=== PATIENT | female | born 1950 | race Caucasian/White ===

== ENCOUNTER → 2018-08-18 13:10 | Outpatient (BNVA) | payer MEDICARE, SELFPAY | PROVIDERS: PCP Family Medicine; Referring Provider Family Medicine; Visit Provider Surgery | DX: C44.319 Basal cell carcinoma of skin of other parts of face (principal) | CPT/HCPCS: 99202; 99213 ==

== ENCOUNTER 2018-08-28 06:54 | Day surgery (SDC) | payer MEDICARE, SELFPAY ==
[2018-08-28 07:04] VITALS: BP 138/68; PULSE 70; RESP 14; TEMP 37.3; O2SAT 94
[2018-08-28] MEDS: Lidocaine 1% Pres-Free 5 ML VIAL (09:00)
--- NOTE | 2018-08-28 09:07 | SKI_PTH ---
PATIENT: Inga Hernandez LOC: [facility] U#:[id number] AGE/SX: 67/F ROOM: RE08/28/[address]: Clay Roberts DO : 1950 BED: DIS: 08/28/2018 SPEC #: [id number] RECD: 08/28/18 12:54 STATUS: CARMELO REQ #: [id number] CINDY: 08/28/18 09:[address]: Clay Roberts DEPT: Surgical Specimen RECD BY: Patricia Ng ENTERED: 08/28/18 12:56 SP TYPE: JAIDEN WILSON DR: Tato Epps MD Tissues: 1 - SKIN BIOPSY(SHAVE/PUNCH) Procedures: SKIN LEVEL 4 Comments: [id number]
--- NOTE | 2018-08-28 09:38 | W.PM.DSUDISC ---
Discharge Plan Disposition Patient Disposition: HOME Condition: Good Discharge Details Reason For Visit: Basal carcinoma cell Attending Provider: Clay Roberts Primary Care Provider: Tato Epps Home Meds and New Rx's Prescriptions: No Action ascorbic acid (vitamin C) [C-1000] 1,000 MG tablet 1 tab PO DAILY RF: 0 multivitamin with minerals [Hair,Skin and Nails] 1 EACH tablet 1 tab PO DAILY RF: 0 vitamin B complex 1 EACH capsule 1 ea PO DAILY RF: 0 cholecalciferol (vitamin D3) 1,000 UNIT tablet 3,000 unit PO DAILY RF: 0 Discharge Instructions Instructions: Care For Your Absorbable Stitches (DC) Referrals: Clay Roberts DO [ [facility] STAFF PHYSICIAN] - 09/08/18 9:15 am (Follow up after excision of BCC left samaritan) Activity:: Activity as Tolerated Remove Dressings/Wound Care:: Do Not Remove Shower/Bathe:: 24 hours Diet:: Normal Diet Discharge Orders Discharge Orders: Discharge Order (Routine); Ordered 08/28/18 Ordered By: Clay Roberts DS: Diagnosis Discharge Diagnosis (1) Basal cell carcinoma (BCC): Status: Acute Asessment and Plan: Biopsy proven BCC excise under local
--- NOTE | 2018-08-28 09:43 | PDOC.DSDIS_ITS ---
Discharge Plan Disposition Patient Disposition: HOME Condition: Good Discharge Details Reason For Visit: Basal carcinoma cell Attending Provider: Clay Roberts Primary Care Provider: Tato Epps Home Meds and New Rx's Prescriptions: No Action ascorbic acid (vitamin C) [C-1000] 1,000 MG tablet 1 tab PO DAILY RF: 0 multivitamin with minerals [Hair,Skin and Nails] 1 EACH tablet 1 tab PO DAILY RF: 0 vitamin B complex 1 EACH capsule 1 ea PO DAILY RF: 0 cholecalciferol (vitamin D3) 1,000 UNIT tablet 3,000 unit PO DAILY RF: 0 Discharge Instructions Instructions: Care For Your Absorbable Stitches (DC) Referrals: Clay Roberts DO [ [facility] STAFF PHYSICIAN] - 09/08/18 9:15 am (Follow up after excision of BCC left muslim) Activity:: Activity as Tolerated Remove Dressings/Wound Care:: Do Not Remove Shower/Bathe:: 24 hours Diet:: Normal Diet Discharge Orders Discharge Orders: Discharge Order (Routine); Ordered 08/28/18 Ordered By: Clay Roberts DS: Diagnosis Discharge Diagnosis (1) Basal cell carcinoma (BCC): Status: Acute Asessment and Plan: Biopsy proven BCC excise under local
[2018-08-28 09:45] VITALS: BP 140/77; PULSE 65; RESP 16; TEMP 37; O2SAT 97
--- NOTE | 2018-08-28 17:16 | W.PM.OP ---
Date of service: 08/28/18 Time of Service: 08:30 Operative Note DATE OF PROCEDURE: 08/28/18 PRE-OP DIAGNOSIS: Basal cell carcinoma of the left mormon POST-OP DIAGNOSIS: same PROCEDURE: Excision of basal cell carcinoma of the left mormon SURGEON: Clay Roberts PHOTOCOPY OPERATOR: Jayla Brar ANESTHESIA: local (1% lidocaine and 0.25% Marcaine with epinephrine ) ESTIMATED BLOOD LOSS: 3 PATHOLOGY: other (Basal cell carcinoma left mormon single tail medial, double tail superior) COMPLICATIONS: None Patient was transported to: same day Patient's condition: stable Indications: 67-year-old woman with biopsy-proven basal cell carcinoma of the left mormon presents for definitive excision of the lesion. Findings: Basal cell carcinoma lesion excised in a semi-lunar excision measuring 2.1 cm x 0.6 cm in greatest dimensions. Procedure Description: The patient was brought to the operating room and positioned supine with her head and upper torso elevated to 30 degrees. An appropriate timeout was made which reviewed the patient's identification, allergies, medications, procedure, and site. The left mormon was then prepped with Betadine paint, and block draped in standard sterile fashion. Local was then infiltrated in a semi-lunar ellipse around the lesion which was marked after the site was prepped. I began by excising the semi-lunar ellipse, which measured 2.1 cm x 0.6 cm in greatest dimension, that I had put made around the patient's lesion on her left mormon which was very close to the left eyebrow ridge. The incision was carried down to the subcutaneous tissue and the base was sharply divided. Hemostasis was obtained with cautery. The lesion was passed off for pathology with the following markings medial was marked with a single single tail stitch, and superior was marked with a double tail stitch. The wound was then closed in layers with 4-0 Vicryl suture using an inverted interrupted stitches to approximate the subcutaneous tissue. The skin was closed using a running subcuticular suture of 5-0 Vicryl. Skin glue was then applied as a dressing over the closed wound. There are no complications during the case the patient tolerated very well. She was brought to the day surgery recovery area in good condition
--- NOTE | 2018-08-28 17:27 | ROE_ITS ---
Date of service: 08/28/18 Time of Service: 08:30 Operative Note DATE OF PROCEDURE: 08/28/18 PRE-OP DIAGNOSIS: Basal cell carcinoma of the left congregational POST-OP DIAGNOSIS: same PROCEDURE: Excision of basal cell carcinoma of the left congregational SURGEON: Clay Roberts CONSTRUCTION AREA MANAGER: Jayla Brar ANESTHESIA: local (1% lidocaine and 0.25% Marcaine with epinephrine ) ESTIMATED BLOOD LOSS: 3 PATHOLOGY: other (Basal cell carcinoma left congregational single tail medial, double tail superior) COMPLICATIONS: None Patient was transported to: same day Patient's condition: stable Indications: 67-year-old woman with biopsy-proven basal cell carcinoma of the left congregational presents for definitive excision of the lesion. Findings: Basal cell carcinoma lesion excised in a semi-lunar excision measuring 2.1 cm x 0.6 cm in greatest dimensions. Procedure Description: The patient was brought to the operating room and positioned supine with her head and upper torso elevated to 30 degrees. An appropriate timeout was made which reviewed the patient's identification, allergies, medications, procedure, and site. The left congregational was then prepped with Betadine paint, and block draped in standard sterile fashion. Local was then infiltrated in a semi-lunar ellipse around the lesion which was marked after the site was prepped. I began by excising the semi-lunar ellipse, which measured 2.1 cm x 0.6 cm in greatest dimension, that I had put made around the patient's lesion on her left congregational which was very close to the left eyebrow ridge. The incision was carried down to the subcutaneous tissue and the base was sharply divided. Hemostasis was obtained with cautery. The lesion was passed off for pathology with the following markings medial was marked with a single single tail stitch, and superior was marked with a double tail stitch. The wound was then closed in layers with 4-0 Vicryl suture using an inverted interrupted stitches to approximate the subcutaneous tissue. The skin was closed using a running subcuticular suture of 5-0 Vicryl. Skin glue was then applied as a dressing over the closed wound. There are no complications during the case the patient tolerated very well. She was brought to the day surgery recovery area in good condition
== END 2018-08-28 09:58 | disposition home or self-care (01) ==
PROVIDERS: PCP Family Medicine; Visit Provider Surgery
PROC: (CPT 11642; principal; 2018-08-28 08:45)
DX: C44.319 Basal cell carcinoma of skin of other parts of face (principal)
CPT/HCPCS: 11642; 12051; 88305

== ENCOUNTER → 2018-09-08 08:57 | Outpatient (BNVA) | payer MEDICARE, SELFPAY | PROVIDERS: PCP Family Medicine; Referring Provider Family Medicine; Visit Provider Surgery | DX: Z48.817 Encounter for surgical aftercare following surgery on the skin and subcutaneous tissue (principal); C44.310 Basal cell carcinoma of skin of unspecified parts of face ==

== ENCOUNTER → 2018-10-06 09:04 | Outpatient (BNVA) | payer MEDICARE, SELFPAY | PROVIDERS: PCP Family Medicine; Referring Provider Family Medicine; Visit Provider Surgery | DX: R69 Illness, unspecified (principal) ==

== ENCOUNTER → 2018-10-08 09:10 | Outpatient (BNVA) | payer MEDICARE, SELFPAY | PROVIDERS: PCP Family Medicine; Referring Provider Family Medicine; Visit Provider Surgery | DX: C44.319 Basal cell carcinoma of skin of other parts of face (principal) | CPT/HCPCS: 99212; 99213 ==

== ENCOUNTER 2018-10-23 12:52 | Day surgery (SDC) | payer MEDICARE, SELFPAY ==
[2018-10-23 13:10] VITALS: BP 141/83; PULSE 78; RESP 16; TEMP 37.5; O2SAT 95
--- NOTE | 2018-10-23 15:05 | SKI_PTH ---
PATIENT: Inga Hernandez LOC: [facility] U#:[id number] AGE/SX: 67/F ROOM: RE10/23/[address]: Clay Roberts DO : 1950 BED: DIS: 10/23/2018 SPEC #: [id number] RECD: 10/23/18 18:25 STATUS: CARMELO REQ #: [id number] CINDY: 10/23/18 15:[address]: Clay Roberts DEPT: Surgical Specimen RECD BY: Patricia Ng ENTERED: 10/23/18 18:27 SP TYPE: SKI OTHR DR: Tato Epps MD Tissues: 1 - SKIN BIOPSY(SHAVE/PUNCH) 2 - FROZEN SECTION EXAM 3 - FROZEN SECTION- EXTRA SPECIMEN Procedures: FROZEN SECTION EXTRA SKIN LEVEL 4 FROZEN SECTION EXAM Comments: [id number]
--- NOTE | 2018-10-23 17:27 | ROE_ITS ---
Date of service: 10/23/18 Time of Service: 15:30 Operative Note DATE OF PROCEDURE: 10/23/18 PRE-OP DIAGNOSIS: Basal cell carcinoma of the left eyebrow POST-OP DIAGNOSIS: same PROCEDURE: Excision positive margins basal cell carcinoma of the left eyebrow SURGEON: Clay Roberts ANESTHESIA: local (1% lidocaine with epinephrine) ESTIMATED BLOOD LOSS: 3 PATHOLOGY: other (Excised left eyebrow scar: One single stitch medial, double stitch inferior) COMPLICATIONS: None Patient was transported to: same day Patient's condition: stable Indications: 67-year-old woman with biopsy-proven basal cell carcinoma of the left eyebrow, which was subsequently excised under local. Pathology review of the specimen showed positive margins of both the inferior and superior edges of the excision. It was recommended that the positive margins be excised. The procedure was reviewed with her, and the risks discussed. All her questions were answered to her satisfaction. Consent was obtained to proceed with reexcision of positive margins. Findings: A left curvilinear elliptical incision was made measuring 3.5 cm x 1 cm in greatest diameter over the prior excision scar of the left lateral eyebrow ridge. Pathology reviewed by frozen section demonstrated no residual carcinoma at the new margins. Procedure Description: Patient was brought to the operating room positioned supine. She was positioned with her torso flexed to 30 degrees, and all bony prominences were padded. An appropriate timeout was taken reviewing the patient's identification, allergies, medications, procedure, and site. The left lutheran was then prepped with Betadine and block draped in standard sterile fashion. I created a anesthetic field by infiltrating local in and around the prior scar. I then proceeded to excise the prior scar by making a curvilinear incision around this measuring 3.5 cm x 1 cm in the greater and lesser axis. The base was then sharply divided. I marked the specimen with silk sutures: Single tail for the medial margin, and double tail for the inferior margin. The wound edges were approximated using simple stitches of 2-0 Prolene suture. Specimen was reviewed by pathology by frozen section. Pathology confirmed no residual carcinoma at the new margins. I then removed the 2-0 Prolene stitches. The wound was then closed in layers. The subcutaneous tissue was approximated using simple inverted stitches of 3-0 Vicryl, and skin was approximated using 4-0 Vicryl suture in a subcuticular fashion. There were no complications during the case. Patient tolerated procedure well, and was brought to the day surgery recovery area in good condition. All counts were reported as correct x2
--- NOTE | 2018-10-23 17:50 | W.PM.DSUDISC ---
Discharge Plan Disposition Patient Disposition: HOME Condition: Good Discharge Details Reason For Visit: Basal cell carcinoma Attending Provider: Clay Roberts Primary Care Provider: Tato Epps Home Meds and New Rx's Prescriptions: Continued ascorbic acid (vitamin C) [C-1000] 1,000 MG tablet 1 tab PO DAILY RF: 0 multivitamin with minerals [Hair,Skin and Nails] 1 EACH tablet 1 tab PO DAILY RF: 0 vitamin B complex 1 EACH capsule 1 ea PO DAILY RF: 0 cholecalciferol (vitamin D3) 1,000 UNIT tablet 3,000 unit PO DAILY RF: 0 Discharge Instructions Instructions: Care For Your Stitches (DC), Skin Cancer Prevention (DC) Stand Alone Forms: Gera Mena ([facility]U) Referrals: Jayla Brar PA [[facility]ANS ORTHODONTIC TECHNICIAN] - 10/27/18 10:45 am Activity:: Activity as Tolerated Remove Dressings/Wound Care:: Do Not Remove Diet:: As Tolerated Discharge Orders Discharge Orders: Discharge Order (Routine); Ordered 10/23/18 Ordered By: Clay Roberts Discharge Data Discharge Date/Time-TO BE ENTERED AT DEPARTURE: 10/23/18 16:29 DS: Diagnosis Discharge Diagnosis (1) Basal cell carcinoma (BCC) of brow: Status: Acute Asessment and Plan: Positive margins excised with confirmation by frozen section Operative Note DATE OF PROCEDURE: 10/23/18 PRE-OP DIAGNOSIS: Basal cell carcinoma of the left eyebrow POST-OP DIAGNOSIS: same PROCEDURE: Excision positive margins basal cell carcinoma of the left eyebrow SURGEON: Clay Roberts ANESTHESIA: local (1% lidocaine with epinephrine) ESTIMATED BLOOD LOSS: 3 PATHOLOGY: other (Excised left eyebrow scar: One single stitch medial, double stitch inferior) COMPLICATIONS: None Patient was transported to: same day Patient's condition: stable Indications: 67-year-old woman with biopsy-proven basal cell carcinoma of the left eyebrow, which was subsequently excised under local. Pathology review of the specimen showed positive margins of both the inferior and superior edges of the excision. It was recommended that the positive margins be excised. The procedure was reviewed with her, and the risks discussed. All her questions were answered to her satisfaction. Consent was obtained to proceed with reexcision of positive margins. Findings: A left curvilinear elliptical incision was made measuring 3.5 cm x 1 cm in greatest diameter over the prior excision scar of the left lateral eyebrow ridge. Pathology reviewed by frozen section demonstrated no residual carcinoma at the new margins. Procedure Description: Patient was brought to the operating room positioned supine. She was positioned with her torso flexed to 30 degrees, and all bony prominences were padded. An appropriate timeout was taken reviewing the patient's identification, allergies, medications, procedure, and site. The left anglican was then prepped with Betadine and block draped in standard sterile fashion. I created a anesthetic field by infiltrating local in and around the prior scar. I then proceeded to excise the prior scar by making a curvilinear incision around this measuring 3.5 cm x 1 cm in the greater and lesser axis. The base was then sharply divided. I marked the specimen with silk sutures: Single tail for the medial margin, and double tail for the inferior margin. The wound edges were approximated using simple stitches of 2-0 Prolene suture. Specimen was reviewed by pathology by frozen section. Pathology confirmed no residual carcinoma at the new margins. I then removed the 2-0 Prolene stitches. The wound was then closed in layers. The subcutaneous tissue was approximated using simple inverted stitches of 3-0 Vicryl, and skin was approximated using 4-0 Vicryl suture in a subcuticular fashion. There were no complications during the case. Patient tolerated procedure well, and was brought to the day surgery recovery area in good condition. All counts were reported as correct x2
--- NOTE | 2018-10-23 17:55 | PDOC.DSDIS_ITS ---
Discharge Plan Disposition Patient Disposition: HOME Condition: Good Discharge Details Reason For Visit: Basal cell carcinoma Attending Provider: Clay Roberts Primary Care Provider: Tato Epps Home Meds and New Rx's Prescriptions: Continued ascorbic acid (vitamin C) [C-1000] 1,000 MG tablet 1 tab PO DAILY RF: 0 multivitamin with minerals [Hair,Skin and Nails] 1 EACH tablet 1 tab PO DAILY RF: 0 vitamin B complex 1 EACH capsule 1 ea PO DAILY RF: 0 cholecalciferol (vitamin D3) 1,000 UNIT tablet 3,000 unit PO DAILY RF: 0 Discharge Instructions Instructions: Care For Your Stitches (DC), Skin Cancer Prevention (DC) Stand Alone Forms: Gera Mena ([facility]U) Referrals: Jayla Brar PA [PHYSICIANS LEGAL WORD PROCESSOR] - 10/27/18 10:45 am Activity:: Activity as Tolerated Remove Dressings/Wound Care:: Do Not Remove Diet:: As Tolerated Discharge Orders Discharge Orders: Discharge Order (Routine); Ordered 10/23/18 Ordered By: Clay Roberts Discharge Data Discharge Date/Time-TO BE ENTERED AT DEPARTURE: 10/23/18 16:29 DS: Diagnosis Discharge Diagnosis (1) Basal cell carcinoma (BCC) of brow: Status: Acute Asessment and Plan: Positive margins excised with confirmation by frozen section Operative Note DATE OF PROCEDURE: 10/23/18 PRE-OP DIAGNOSIS: Basal cell carcinoma of the left eyebrow POST-OP DIAGNOSIS: same PROCEDURE: Excision positive margins basal cell carcinoma of the left eyebrow SURGEON: Clay Roberts ANESTHESIA: local (1% lidocaine with epinephrine) ESTIMATED BLOOD LOSS: 3 PATHOLOGY: other (Excised left eyebrow scar: One single stitch medial, double s titch inferior) COMPLICATIONS: None Patient was transported to: same day Patient's condition: stable Indications: 67-year-old woman with biopsy-proven basal cell carcinoma of the left eyebrow, which was subsequently excised under local. Pathology review of the specimen showed positive margins of both the inferior and superior edges of the excision. It was recommended that the positive margins be excised. The procedure was reviewed with her, and the risks discussed. All her questions were answered to her satisfaction. Consent was obtained to proceed with reexcision of positive margins. Findings: A left curvilinear elliptical incision was made measuring 3.5 cm x 1 cm in greatest diameter over the prior excision scar of the left lateral eyebrow ridge. Pathology reviewed by frozen section demonstrated no residual carcinoma at the new margins. Procedure Description: Patient was brought to the operating room positioned supine. She was positioned with her torso flexed to 30 degrees, and all bony prominences were padded. An appropriate timeout was taken reviewing the patient's identification, allergies, medications, procedure, and site. The left jehovah's witness was then prepped with Betadine and block draped in standard sterile fashion. I created a anesthetic field by infiltrating local in and around the prior scar. I then proceeded to excise the prior scar by making a curvilinear incision around this measuring 3.5 cm x 1 cm in the greater and lesser axis. The base was then sharply divided. I marked the specimen with silk sutures: Single tail for the medial margin, and double tail for the inferior margin. The wound edges were approximated using simple stitches of 2-0 Prolene suture. Specimen was reviewed by pathology by frozen section. Pathology confirmed no residual carcinoma at the new margins. I then removed the 2-0 Prolene stitches. The wound was then closed in layers. The subcutaneous tissue was approximated using simple inverted stitches of 3-0 Vicryl, and skin was approximated using 4-0 Vicryl suture in a subcuticular fashion. There were no complications during the case. Patient tolerated procedure well, and was brought to the day surgery recovery area in good condition. All counts were reported as correct x2
== END 2018-10-23 16:29 | disposition home or self-care (01) ==
PROVIDERS: PCP Family Medicine; Visit Provider Surgery
PROC: 0HB1XZZ Excision of Face Skin, External Approach (ICD-10-PCS; CPT 11644; principal; 2018-10-23 14:00)
DX: C44.319 Basal cell carcinoma of skin of other parts of face (principal)
CPT/HCPCS: 11644; 12052; 88305; 88331; 88332

== ENCOUNTER 2019-06-05 08:33 | Emergency (ER) | payer MEDICARE, SELFPAY ==
[2019-06-05 08:40] VITALS: BP 148/75; PULSE 68; RESP 16; TEMP 36.6; O2SAT 98
--- NOTE | 2019-06-05 08:43 | W.ED.GENAD ---
Discharge Plan Disposition Patient Disposition: HOME Condition: Stable Discharge Details Chief Complaint: RashLesion Clinical Impression: Abscess of axilla, left Primary Care Provider: Tato Epps ED Provider: Piter Bennett Home Meds and New Rx's Prescriptions: New sulfamethoxazole-trimethoprim [Bactrim DS] 800-160 mg tablet 1 tab PO BID Qty: 14 RF: 0 No Action ascorbic acid (vitamin C) [C-1000] 1,000 MG tablet 1 tab PO DAILY RF: 0 multivitamin with minerals [Hair,Skin and Nails] 1 EACH tablet 1 tab PO DAILY RF: 0 vitamin B complex 1 EACH capsule 1 ea PO DAILY RF: 0 cholecalciferol (vitamin D3) 1,000 UNIT tablet 3,000 unit PO DAILY RF: 0 Discharge Instructions Additional Instructions: I have referred you to general surgery to have an evaluation to see if there is a procedure that can be done to help prevent this from happening in the future If you have fevers, severe worsening of pain or feel more ill return to the emergency department Medical Decision Making PAtient states for years she has had an intermittent lesion in left arm pit that will intermittently drain. Has had recurrence of it the past week with some drainage, no fevers or chills or other systemic symptoms. She has a 1cm open area in left arm pit that appears to have drained and is likely an abscess, no significant surrounding erythema and no severe pain or crepitus. Will start abx and given she has had this numerous times will refer to general surgery for an evaluation Differential Diagnosis nodule, abscess, cellulitis HPI General Mode of arrival: ambulatory. Date/Time Provider Initiated Documentation: 06/05/19 08:34. Limitations to Documentation: no limitations. Information obtained by: patient. History of Present Illness 68 year old F presents to the emergency department with the chief complaint of left arm lesion, described as mild, Quality is described as aching, Patient started experiencing this year(s) (2) and it has been intermittent. No relieving factors improve symptom(s), No exacerbating factors reported . Patient did receive the following treatments prior to arrival, none Related Data Home Medications Medication Instructions Recorded Confirmed ascorbic acid (vitamin C) [C-1000] 1 tab PO DAILY 02/19/13 10/23/18 multivitamin with minerals 1 tab PO DAILY 02/19/13 10/23/18 [Hair,Skin and Nails] cholecalciferol (vitamin D3) 3,000 unit PO DAILY 12/11/16 10/23/18 vitamin B complex 1 ea PO DAILY 12/11/16 10/23/18 sulfamethoxazole-trimethoprim 1 tab PO BID #14 tab 06/05/19 [Bactrim DS] Previous Rx's Medication Instructions Recorded sulfamethoxazole-trimethoprim 1 tab PO BID #14 tab 06/05/19 [Bactrim DS] Allergies Allergy/AdvReac Type Severity Reaction Status Date / Time acetaminophen AdvReac Intermediate SENSITIVE Verified 10/23/18 13:07 LIVER General Stated Complaint: RashLesion ABDULAZIZ: 4 Review of Systems Review of Systems All systems reviewed & are unremarkable except as noted in HPI and below Constitutional Denies chills, Denies fever(s) and Denies weakness Cardiovascular Denies chest pain and Denies dyspnea Respiratory Denies cough and Denies dyspnea Gastrointestinal Denies abdominal pain, Denies nausea and Denies vomiting Musculoskeletal Denies joint swelling Neurologic Denies weakness [facility] Medical History (Updated 10/23/18 @ 17:52 by Clay Roberts DO) Anemia associated with past Anxiety (Chronic) Basal cell carcinoma (BCC) of brow (Acute) Depression Depressive disorder (Chronic) Endometrial adenocarcinoma (Resolved 03/15/17) Endometrial cancer (Chronic) Hyperlipidemia (Chronic) Hyperlipidemia (Chronic) Hyperthyroidism (Chronic) Hypothyroidism (Chronic 04/20/13) Non-alcoholic fatty liver disease (Chronic) Ovarian cancer (Chronic) Posttraumatic stress disorder (Chronic) Surgical History (Updated 10/30/18 @ 14:25 by Lala Peoples RN) Bilateral salpingectomy with oophorectomy (04/04/17) History of excision of lesion (Resolved 10/28/18) Hysterectomy (04/04/17) Status post surgical removal of malignant neoplasm of skin (Resolved) Family History Mother Diabetes Neoplasm Father Neoplasm Sister TB (tuberculosis) Diabetes Heart disease Neoplasm Stroke Brother Diabetes Heart disease Stroke Grandfather Neoplasm Stroke Grandfather Heart disease Grandmother No problems noted. Grandmother No problems noted. Sister No problems noted. Sister No problems noted. Brother No problems noted. Brother No problems noted. Daughter No problems noted. Social History (Updated 08/18/18 @ 19:44 by Clay Roberts DO) Smoking/Tobacco Use Status: Never Alcohol Intake: never Drug use: Never Substance use type: does not use Do you feel safe in your relationship?: Yes Exam Const General: no acute distress Orientation: alert HENMT Head: normal to inspection Ears: external ears normal General nose exam: external nose normal Mouth: moist mucous membranes Eyes General: appearance normal, both eyes and all related structures Neck Neck: normal visual inspection Resp Effort & Inspection: normal respiratory effort and able to speak in complete sentences Cardio Rate: regular rate Skin General skin exam: elasticity normal Neuro General: alert and oriented x3 Extrem General: full ROM and normal capillary refill Psych Mental Status: mental status grossly normal Course Vital Signs Temperature 36.6 C 06/05/19 08:40 Pulse 68 06/05/19 08:40 Respiratory Rate 16 06/05/19 08:40 Blood Pressure 148/75 H 06/05/19 08:40 Pulse Oximetry 98 06/05/19 08:40 Temperature 36.6 C 06/05/19 08:40 Temperature Source Temporal Artery Scan 06/05/19 08:40 Pulse 68 06/05/19 08:40 Respiratory Rate 16 06/05/19 08:40 Respiratory Effort 06/05/19 08:40 Blood Pressure 148/75 H 06/05/19 08:40 Blood Pressure Position Sitting 06/05/19 08:40 Pulse Oximetry 98 06/05/19 08:40 Oxygen Delivery Method Room Air 06/05/19 08:40 Oxygen Flow Rate 0 06/05/19 08:40
[2019-06-05 08:57] VITALS: BP 148/75; PULSE 68; RESP 16; TEMP 36.6; O2SAT 98
== END 2019-06-05 08:47 | disposition home or self-care (01) ==
LOC: ER 08:52
PROVIDERS: Emergency Provider Emergency Medicine; PCP Family Medicine
DX: L02.412 Cutaneous abscess of left axilla (principal)
CPT/HCPCS: 99283

== ENCOUNTER → 2019-06-11 11:19 | Outpatient (BNVA) | payer MEDICARE, SELFPAY | PROVIDERS: PCP Family Medicine; Referring Provider Family Medicine; Visit Provider Physical Therapy Assistant | DX: L02.91 Cutaneous abscess, unspecified (principal) | CPT/HCPCS: 99213 ==

== ENCOUNTER → 2019-06-25 14:13 | Outpatient (BNVA) | payer MEDICARE, SELFPAY | PROVIDERS: PCP Family Medicine; Referring Provider Family Medicine; Visit Provider Physical Therapy Assistant | DX: L02.412 Cutaneous abscess of left axilla (principal) | CPT/HCPCS: 10060; 99213 ==

== ENCOUNTER 2019-06-25 18:40 | Outpatient (REF) | payer MEDICARE, SELFPAY | END 2019-06-25 19:00 | LOC: LBN 18:40 | PROVIDERS: PCP Family Medicine; Visit Provider Physical Therapy Assistant | DX: L02.412 Cutaneous abscess of left axilla (principal) | CPT/HCPCS: 87070; 87205 ==

== ENCOUNTER → 2019-06-29 10:09 | Outpatient (BNVA) | payer MEDICARE, SELFPAY | PROVIDERS: PCP Family Medicine; Referring Provider Family Medicine; Visit Provider Physical Therapy Assistant | DX: Z48.817 Encounter for surgical aftercare following surgery on the skin and subcutaneous tissue (principal); Z48.02 Encounter for removal of sutures ==

== ENCOUNTER 2019-10-06 09:15 | Emergency (ER) | payer MEDICARE, SELFPAY ==
[2019-10-06 09:23] VITALS: BP 133/78; PULSE 72; RESP 16; TEMP 36.4
--- NOTE | 2019-10-06 10:03 | W.ED.GENAD ---
Discharge Plan Disposition Patient Disposition: HOME Condition: Stable Discharge Details Chief Complaint: RespSymp Clinical Impression: Acute streptococcal pharyngitis, Pneumonia Primary Care Provider: Tato Epps ED Provider: iKsha Monte Home Meds and New Rx's Prescriptions: New prednisone 20 mg tablet See Rx Instructions .ROUTE .COMPLEX Qty: 9 RF: 0 amoxicillin-pot clavulanate [Augmentin] 875-125 mg tablet 1 tab PO BID 10 Days Qty: 20 RF: 0 codeine-guaifenesin 6.3-100 mg/5 mL liquid 10 ml PO Q6H PRN (Reason: cough) Qty: 120 RF: 0 Continued ascorbic acid (vitamin C) [C-1000] 1,000 MG tablet 1 tab PO DAILY RF: 0 multivitamin with minerals [Hair,Skin and Nails] 1 EACH tablet 1 tab PO DAILY RF: 0 vitamin B complex 1 EACH capsule 1 ea PO DAILY RF: 0 cholecalciferol (vitamin D3) 1,000 UNIT tablet 3,000 unit PO DAILY RF: 0 Discharge Instructions Instructions: Pharyngitis (ED), Pneumonia (ED) Additional Instructions: Drink plenty of fluids and get plenty of rest. Alternate Tylenol and Motrin as needed and directed for pain. Use the albuterol inhaler and cough medication as needed and directed. Take the prednisone and antibiotics until finished. Call your primary care doctor's office today to schedule follow-up appointment for reevaluation next week. Return immediately to the emergency department if you develop any worsening or new concerning symptoms. Discharge Data Discharge Date/Time-TO BE ENTERED AT DEPARTURE: 10/06/19 11:09 Discharge Physician: Kisha Monte Medical Decision Making 66 -- 68-year-old female with a history of anxiety, depression, hyperlipidemia with sore throat, cough with white sputum, and occasional shortness of breath and wheezing for the past 2 months. Denies fever or chest pain. Vitals within normal limits. Patient appears nontoxic. She is noted to have a somewhat wheezy cough during examination. Normal ENT exam. Mildly diminished breath sounds right lung banuelos. Abdomen soft and nontender. Differential diagnosis includes bronchitis, pneumonia, strep pharyngitis, allergies, URI. We will do rapid strep, chest x-ray give a DuoNeb and dose of prednisone and reassess. 1100 --rapid strep positive. Chest x-ray notes a large dense right lower lobe consolidation which was reviewed with radiologist Dr. Espinosa and appears likely consistent with pneumonia based on xray findings and in the settings of pt's complaints rather than atelectasis. She appears generally well and does not report a history of weight loss. Patient feels better after DuoNeb. Will cover for strep and pneumonia with Augmentin. We will also send with an albuterol inhaler and prednisone. She is advised to drink plenty of fluids, get plenty of rest and follow-up with her primary care doctor within the next week. She is advised to return here immediately if she develops any worsening or concerning symptoms such as fevers, worsening symptoms. Medical Records Medical records reviewed: Yes I reviewed the patient's medical records. Imaging Data Radiologic Study: Radiologist's impression: XR CHEST 2V PA LATERAL INDICATION: cough, sob, r/o pneumonia. COMPARISON: No exams were available for comparison TECHNIQUE: 2D digital imaging was performed. FINDINGS: The heart size is normal. The aorta is tortuous. The right diaphragm is elevated. There is an area apparent consolidation in the posterior right lower lobe. The right upper lobe as well as left lung appear clear. IMPRESSION: Dense consolidation in the right lower lobe. HPI General Mode of arrival: ambulatory. Date/Time Provider Initiated Documentation: 10/06/19 09:43. Limitations to Documentation: no limitations. Information obtained by: patient. HPI Narrative: Pt is a 68yo F w/ a h/o anxiety, depression and hyperlipidemia who presents to the ED w/ a c/o cough w/ white sputum, sore throat, occasional shortness with wheezing for the past 2 months. Pt states she started with symptoms of right rib, right long and right shoulder pain 2 months ago which resolved with supplements of vitamins. She states she still has a lingering sore throat and cough that is worse at night and keeps her up and she is unable to sleep. She also has clear nasal discharge. She admits to diminished appetite. She denies any known fever, chest pain, abdominal pain, vomiting or diarrhea. She denies any recent travel, sick contacts or recent antibiotics. She states she has not seen her primary for the symptoms. Related Data Home Medications Medication Instructions Recorded Confirmed ascorbic acid (vitamin C) [C-1000] 1 tab PO DAILY 02/19/13 10/06/19 multivitamin with minerals 1 tab PO DAILY 02/19/13 10/06/19 [Hair,Skin and Nails] cholecalciferol (vitamin D3) 3,000 unit PO DAILY 12/11/16 10/06/19 vitamin B complex 1 ea PO DAILY 12/11/16 10/06/19 amoxicillin-pot clavulanate 1 tab PO BID 10 Days #20 tab 10/06/19 [Augmentin] codeine-guaifenesin 10 ml PO Q6H PRN #120 ml 10/06/19 prednisone See Rx Instructions .ROUTE 10/06/19 .COMPLEX #9 tab Previous Rx's Medication Instructions Recorded amoxicillin-pot clavulanate 1 tab PO BID 10 Days #20 tab 10/06/19 [Augmentin] codeine-guaifenesin 10 ml PO Q6H PRN #120 ml 10/06/19 prednisone See Rx Instructions .ROUTE 10/06/19 .COMPLEX #9 tab Allergies Allergy/AdvReac Type Severity Reaction Status Date / Time acetaminophen AdvReac Intermediate SENSITIVE Verified 10/06/19 09:27 LIVER General Stated Complaint: RespSymp ABDULAZIZ: 4 Review of Systems All systems reviewed & are unremarkable except as noted in HPI and below Constitutional Constitutional: Reports as per HPI, Denies chills and Denies fever(s) Eyes Eyes: Denies blurry vision ENT Ears, Nose, Mouth, and Throat: Denies dizziness, Denies sore throat and Denies throat swelling Cardiovascular Cardiovascular: Denies chest pain and Reports dyspnea Respiratory Respiratory: Reports cough and Reports dyspnea Gastrointestinal Gastrointestinal: Denies abdominal pain, Denies diarrhea and Denies vomiting Genitourinary Genitourinary: Denies hematuria and Denies dysuria Musculoskeletal Musculoskeletal: Denies back pain and Denies numbness Integumentary/Breasts Skin/Breast: Denies lesions and Denies rash Neurologic Neurologic: Denies dizziness, Denies focal weakness and Denies numbness Allergic/Immunologic Allergic/Immunologic: Denies throat swelling [facility] Medical History Anemia associated with past Anxiety (Chronic) Basal cell carcinoma (BCC) of brow (Acute) Left synagogue, excised 08/28/18, Dr Roberts, positive margins Depression Past history of with Rx and counseling Depressive disorder (Chronic) Endometrial adenocarcinoma (Resolved 03/15/17) 04/04/17 [facility] [place]/P HYSTERECTOMY/BSO WITH PELVIC & PARA-AORTIC LYMPHADENECTOMY/OMENTECTOMY Endometrial cancer (Chronic) Hyperlipidemia (Chronic) Hyperlipidemia (Chronic) Hyperthyroidism (Chronic) Hypothyroidism (Chronic 04/20/13) Non-alcoholic fatty liver disease (Chronic) Ovarian cancer (Chronic) Posttraumatic stress disorder (Chronic) Surgical History [place] [facility] [place] of [place] (Resolved 10/28/18) negative margins on re-excision Hysterectomy (04/04/17) S/P HYSTERECTOMY/BSO WITH PELVIC & PARA-AORTIC LYMPHADENECTOMY/OMENTECTOMY Status post surgical removal of malignant neoplasm of skin (Resolved) Family History Mother Diabetes TYPE II Neoplasm OVARIAN,CERVICAL Father Neoplasm LUNG 1977 Sister TB (tuberculosis) Diabetes Heart disease Neoplasm BREAST Stroke Brother Diabetes Heart disease Stroke Grandfather Neoplasm Stroke Grandfather Heart disease Grandmother No problems noted. Grandmother No problems noted. Sister No problems noted. Sister No problems noted. Brother No problems noted. Brother No problems noted. Daughter No problems noted. Social History Smoking/Tobacco Use Status: Never Alcohol Intake: never Drug use: Never Substance use type: does not use Do you feel safe in your relationship?: Yes Exam Const General: cooperative, healthy appearing and no acute distress [facility] Head: normal to inspection Ears: hearing grossly normal bilaterally, external ears normal and TM's normal bilaterally General nose exam: external nose normal Face and sinus: normal facial exam Mouth: oral mucosae normal Throat: posterior oropharynx normal Eyes General: appearance normal, both eyes and all related structures EOM: EOM intact bilaterally Neck Neck: normal visual inspection and No submandibular swelling Lymphatic: no lymphadenopathy noted Chest Chest: normal inspection of the chest and no tenderness Resp Effort & Inspection: normal respiratory effort and able to speak in complete sentences Auscultation: clear to auscultation bilaterally Cardio Rate: regular rate Rhythm: regular rhythm GI Inspection: normal to inspection Palpation: soft, not firm, not rigid and nontender Auscultation: normal bowel sounds Back/Spine/Pelvis Thoracic/Lumbar Spine: thoracic and lumbar spine normal to inspection Skin General skin exam: no rashes or lesions noted Neuro General: alert, awake and oriented x3 Cognition: normal cognition Speech: speech normal Motor: muscle tone normal throughout Sensory Exam: no sensory deficits noted Extrem General: normal to inspection, full ROM, normal capillary refill, no calf tenderness bilaterally and no edema Psych Appearance: grossly normal Mental Status: mental status grossly normal Speech and Movement: speech and movement normal Affect: normal affect Course Vital Signs Vital signs: Vital Signs Temperature 97.5 F L 10/06/19 09:23 Pulse 72 10/06/19 09:23 Respiratory Rate 16 10/06/19 09:23 Blood Pressure 133/78 10/06/19 09:23 Temperature 97.5 F L 10/06/19 09:23 Temperature Source Skin 10/06/19 09:23 Pulse 72 10/06/19 09:23 Respiratory Rate 16 10/06/19 09:23 Respiratory Effort Non-Labored 10/06/19 09:37 Respiratory Depth Normal 10/06/19 09:37 Blood Pressure 133/78 10/06/19 09:23 Blood Pressure Position Sitting 10/06/19 09:23 Oxygen Delivery Method Room Air 10/06/19 09:23 Oxygen Flow Rate 0 10/06/19 09:23 Pain Level 0 10/06/19 09:23
--- NOTE | 2019-10-06 10:13 | DI.RAD_ITS ---
EXAM: XR CHEST 2V PA LATERAL INDICATION: cough, sob, r/o pneumonia. COMPARISON: No exams were available for comparison TECHNIQUE: 2D digital imaging was performed. FINDINGS: The heart size is normal. The aorta is tortuous. The right diaphragm is elevated. There is an area apparent consolidation in the posterior right lower lobe. The right upper lobe as well as left lung appear clear. IMPRESSION: Dense consolidation in the right lower lobe.
[2019-10-06] MEDS: Albuterol/Ipratropium 3 ML UPD VIAL UPD (10:19)
[2019-10-06] MEDS: predniSONE 20 MG TAB 60 MG PO (10:19)
[2019-10-06] MEDS: Albuterol HFA 8 GM 60 PUFF INH IH (11:01)
[2019-10-06 11:10] VITALS: BP 120/86; PULSE 81; RESP 20; TEMP 36.8; O2SAT 96
== END 2019-10-06 11:09 | disposition home or self-care (01) ==
PROVIDERS: Emergency Provider Physician Assistant; PCP Family Medicine
DX: J18.9 Pneumonia, unspecified organism (principal); J02.0 Streptococcal pharyngitis
CPT/HCPCS: 87880; 99284; 71046; J7512; J7620

== ENCOUNTER 2019-10-12 07:00 | Outpatient (CLI) | payer MEDICARE, SELFPAY ==
[2019-10-12 10:54] LABS: Abs Immature Grans 0.04 k/cumm (0.0-0.09); Absolute Basophil Count 0.02 k/cumm (0.0-0.2); Absolute Eosinophil Count 0.16 k/cumm (0.0-0.7); Absolute Lymphocyte Count 1.41 k/cumm (1.2-3.4); Absolute Monocyte Count 0.72 k/cumm (0.11-0.7); Basophils % 0.2; Eosinophils % 1.9; HCT 39.1 % (36.0-46.0); HGB 11.9 g/dL (12.0-15.5); Immature Grans % 0.5; Lymphocytes % 17.1; Mean Corp. HGB Concentration 30.4 g/dL (32.0-36.0); Mean Corpuscular Volume 95.1 fL (80-95); Mean Platelet Volume 9.3 fL (8.0-11.0); Monocytes % 8.7; Neutrophils % 71.6; Platelet Count 604 x1000/uL (130-400); RBC 4.11 m/cumm (4.00-5.20); RBC Distribution Width 16.4 % (11.7-14.6); White Blood Cell Count 8.25 k/cumm (4.4-10.8)
[2019-10-12 11:19] LABS: ALT 30 U/L (14-59); AST 14 U/L (15-37); Albumin 3.2 g/dL (3.4-5.0); Alkaline Phosphatase 80 U/L (46-116); Anion Gap 7.6 mmol/L (3-11); BUN 22 mg/dL (7-18); Bilirubin, Total 0.2 mg/dL (0.2-1.0); CO2 30.4 mmol/L (21.0-32.0); CREATININE 0.88 mg/dL (0.55-1.02); Calcium 10.2 mg/dL (8.5-10.1); Chloride 103 mmol/L (98-107); Glucose 85 mg/dL (74-106); Potassium 5.2 mmol/L (3.5-5.1); Sodium 141 mmol/L (136-145); TSH (W/Ref FT4) 4.57 uIU/mL (0.36-3.74); Total Protein 6.9 g/dL (6.4-8.2)
[2019-10-12 11:42] LABS: FREE T4 1.11 ng/dL (0.76-1.46)
== END 2019-10-12 07:20 ==
PROVIDERS: PCP Family Medicine; Visit Provider Family Medicine
DX: F41.9 Anxiety disorder, unspecified (principal); R53.83 Other fatigue; J18.9 Pneumonia, unspecified organism
CPT/HCPCS: 36415; 80053; 84439; 84443; 85025

== ENCOUNTER 2019-10-26 09:28 | Outpatient (CLI) | payer MEDICARE, SELFPAY ==
--- NOTE | 2019-10-26 10:07 | DI.RAD_ITS ---
EXAM: XR CHEST 2V PA LATERAL INDICATION: RLL Pneumonia f/u, J18.9, fatigue, R53.83. COMPARISON: MRI PELVIS WO W from 03/11/2017 XR CHEST 2V PA LATERAL from 10/06/2019 TECHNIQUE: 2D digital imaging was performed. FINDINGS: There is blunting at the right costophrenic angle. There is an area of posterior increased opacity which could represent a loculated effusion, mass or consolidation. Left lung appears clear. There i s no pulmonary edema. The there is no compression fracture. IMPRESSION: Small right pleural effusion. Question of right lower lobe mass versus loculated fluid versus consoli dation. Findings show some improvement with the previous exam.
== END 2019-10-26 09:48 ==
PROVIDERS: PCP Family Medicine; Visit Provider Family Medicine
DX: J90 Pleural effusion, not elsewhere classified (principal); J18.9 Pneumonia, unspecified organism; R53.83 Other fatigue; R91.8 Other nonspecific abnormal finding of lung field
CPT/HCPCS: 71046

== ENCOUNTER 2019-10-28 07:00 | Outpatient (CLI) | payer MEDICARE, SELFPAY ==
[2019-10-28 13:03] LABS: Abs Immature Grans 0.01 k/cumm (0.0-0.09); Absolute Basophil Count 0.01 k/cumm (0.0-0.2); Absolute Eosinophil Count 0.16 k/cumm (0.0-0.7); Absolute Lymphocyte Count 1.05 k/cumm (1.2-3.4); Absolute Monocyte Count 0.53 k/cumm (0.11-0.7); Absolute Neutrophil Count 3.97 k/cumm (1.2-6.7); Basophils % 0.2; Eosinophils % 2.8; HCT 38.6 % (36.0-46.0); HGB 11.7 g/dL (12.0-15.5); Immature Grans % 0.2; Lymphocytes % 18.3; Mean Corp. HGB Concentration 30.3 g/dL (32.0-36.0); Mean Corpuscular Hemoglobin 28.8 pg (27.0-33.0); Mean Corpuscular Volume 95.1 fL (80-95); Monocytes % 9.2; Neutrophils % 69.3; Platelet Count 354 x1000/uL (130-400); RBC 4.06 m/cumm (4.00-5.20); RBC Distribution Width 17.8 % (11.7-14.6); White Blood Cell Count 5.73 k/cumm (4.4-10.8)
[2019-10-28 13:32] LABS: Anion Gap 8.2 mmol/L (3-11); BUN 18 mg/dL (7-18); CO2 28.8 mmol/L (21.0-32.0); CREATININE 0.72 mg/dL (0.55-1.02); Calcium 9.6 mg/dL (8.5-10.1); Chloride 106 mmol/L (98-107); Ferritin 456 ng/mL (8-252); Glucose 76 mg/dL (74-106); Potassium 4.4 mmol/L (3.5-5.1); Sodium 143 mmol/L (136-145)
[2019-10-28 13:43] LABS: Iron 51 ug/dL (50-170); Total Iron Binding Capacity 266 ug/dL (250-450); Transferrin Sat 19 % (15-50)
== END 2019-10-28 07:20 ==
PROVIDERS: PCP Family Medicine; Visit Provider Family Medicine
DX: D64.3 Other sideroblastic anemias (principal); D47.3 Essential (hemorrhagic) thrombocythemia; E83.52 Hypercalcemia
CPT/HCPCS: 36415; 80048; 82728; 83540; 83550; 85025

== ENCOUNTER 2019-11-17 01:21 | Outpatient (CLI) | payer MEDICARE, SELFPAY ==
[2019-11-17 08:45] LABS: CREATININE 0.86 mg/dL (0.55-1.02)
[2019-11-17] MEDS: Omnipaque 350 MG/ML 100 ML BTL IJ (09:20)
[2019-11-17] MEDS: Normal Saline - Diluent 50 ML VIAL IV (09:21)
--- NOTE | 2019-11-17 09:29 | DI.CT_ITS ---
EXAM: CT CHEST W CLINICAL HISTORY: PLEURAL EFFUSION, J90, F/U ABNL XR, R91.8 TECHNIQUE: Post IV contrast COMPARISON: XR CHEST 2V PA LATERAL from 10/06/2019 XR CHEST 2V PA LATERAL from 10/26/2019 XR CHEST 2V PA LATERAL from 10/26/2019 FINDINGS: There is a small right pleural effusion. There is a rim-enhancing area within the effusion, which me asures 4 x 3.1 x 1.5 cm, which could represent an empyema. There is adjacent atelectasis versus cons olidation in the right lower lobe, which has a somewhat rounded appearance. There is no bronchial na rrowing or endobronchial abnormality. The remainder of the lungs appear clear. No pericardial effus ion or left pleural effusion is seen. There is no evidence of adenopathy. The heart size is normal. There is a small hiatal hernia. The visualized portions of the upper abdominal organs are unremark able. IMPRESSION: Small right pleural effusion with focal area of rim enhancement, which could represent an empyema. T here is significant adjacent atelectasis versus consolidation. A mass could be obscured by the findin gs.
== END 2019-11-17 01:41 ==
PROVIDERS: PCP Family Medicine; Visit Provider Family Medicine
DX: J90 Pleural effusion, not elsewhere classified (principal); R91.8 Other nonspecific abnormal finding of lung field; K44.9 Diaphragmatic hernia without obstruction or gangrene
CPT/HCPCS: 71260; 82565; J3490

== ENCOUNTER 2023-04-12 01:30 | Outpatient (CLI) | payer MEDICARE, SELFPAY ==
[2023-04-12 13:13] LABS: Anion Gap 9.5 mmol/L (3-11); BUN 18 mg/dL (7-18); CO2 26.5 mmol/L (21.0-32.0); CREATININE 0.9 mg/dL (0.55-1.02); Calcium 9.5 mg/dL (8.5-10.1); Calculated LDL 79 mg/dL (<100); Chloride 107 mmol/L (98-107); Cholesterol 163 mg/dL (<200); Estimated GFR 68.77 (mL/min/1.73m2); Glucose 87 mg/dL (74-106); HDL Cholesterol 49 mg/dL (40-60); Sodium 143 mmol/L (136-145); TSH (W/Ref FT4) 5.37 uIU/mL (0.36-3.74); Triglyceride 175 mg/dL (<150)
[2023-04-12 13:33] LABS: FREE T4 0.84 ng/dL (0.76-1.46)
== END 2023-04-12 01:31 | disposition home or self-care (01) ==
LOC: LOS 01:31
PROVIDERS: PCP Family Medicine; Visit Provider Family Medicine
DX: E78.5 Hyperlipidemia, unspecified (principal); I10 Essential (primary) hypertension; E03.9 Hypothyroidism, unspecified
CPT/HCPCS: 36415; 80048; 80061; 84439; 84443

== ENCOUNTER 2024-08-11 12:34 | Outpatient (REF) | payer MEDICARE, SELFPAY ==
--- NOTE | 2024-08-11 08:00 | SKI_PTH ---
PATIENT: Inga Hernandez LOC: [facility] U#:[id number] AGE/SX: 73/F ROOM: RE08/11/[address]: Josephine Robledo : 1950 BED: DIS: 08/11/2024 SPEC #: [id number] RECD: 08/11/24 12:35 STATUS: CARMELO RECassidy #: [id number] CINDY: 08/11/24 08:[address]: Josephine Robledo DEPT: Surgical Specimen RECD BY: Patricia Ng Tissues: 1 - SKIN BIOPSY(SHAVE/PUNCH) Procedures: SKIN LEVEL 4 Comments: [id number]
== END 2024-08-11 12:35 | disposition home or self-care (01) ==
LOC: LBN 12:34
PROVIDERS: PCP Family Medicine; Visit Provider Family Medicine
DX: L57.0 Actinic keratosis (principal)
CPT/HCPCS: 88305

== ENCOUNTER 2025-04-15 02:13 | Outpatient (CLI) | payer MEDICARE, SELFPAY ==
--- NOTE | 2025-04-15 07:30 | DI.DEXA_ITS ---
Exam(s) XR DEXA BONE DENSITY W/WO NEFTALI EXAM: XR DEXA BONE DENSITY W/WO NEFTALI CLINICAL HISTORY: Screening,menopausal disorder,n95.9 TECHNIQUE: COMPARISON: No exams were available for comparison FINDINGS: Lateral Spine Image: Unremarkable. No compression deformities identified. Left hip: Total T-Score: -1.6 Total Z-Score: 0.1 T- and Z-scores: Findings are consistent with osteopenia. Lumbar Spine: Total T-Score: -0.9 Total Z-Score: 1.3 T- and Z-scores: Within normal limits. IMPRESSION: No evidence of osteoporosis.
== END 2025-04-15 02:33 ==
LOC: DI 02:13
PROVIDERS: PCP Family Medicine; Visit Provider Family Medicine
DX: N95.9 Unspecified menopausal and perimenopausal disorder (principal); Z13.820 Encounter for screening for osteoporosis
CPT/HCPCS: 77080

== ENCOUNTER → 2025-05-06 10:59 | Outpatient (BNVA) | payer MEDICARE, SELFPAY | PROVIDERS: PCP Family Medicine; Referring Provider Family Medicine; Visit Provider Physical Therapy Assistant | DX: Z12.11 Encounter for screening for malignant neoplasm of colon (principal); R19.5 Other fecal abnormalities | CPT/HCPCS: S0285 ==

== ENCOUNTER 2025-05-13 07:09 | Day surgery (SDC) | payer MEDICARE, SELFPAY ==
[2025-05-13 07:35] VITALS: BP 129/74; PULSE 64; RESP 16; TEMP 36.3; O2SAT 98
[2025-05-13] MEDS: Lactated Ringers 1,000 ML 80 ML IV (08:03)
--- NOTE | 2025-05-13 08:16 | ANES.PREOP_ITS ---
General Info Date of Service Date Performed: 05/13/25 Height: 5 ft 3 in Weight: 70.1 kg Body Mass Index (BMI): 27.3 Surgical Procedure: Operation Date: 05/13/25 08:35 Proposed Procedure Side Surgeon kiesha Mattson MD Meds Allergies and Home Medications Allergies Allergy/AdvReac Type Severity Reaction Status Date / Time acetaminophen AdvReac Intermediate SENSITIVE Verified 05/13/25 07:44 LIVER Home Medication ?Medication ?Instructions ?Recorded ascorbic acid (vitamin C) 1,000 mg 1 tab PO DAILY 02/09 11/23 tablet (C-1000) multivitamin with minerals 1 tab PO DAILY 02/19/13 (Hair,Skin and Nails tablet) cholecalciferol (vitamin D3) 25 3,000 unit PO DAILY mcg (1,000 unit) tablet vitamin B complex 1 ea PO DAILY 12/11/16 mupirocin 2 % topical ointment 1 applic topical TID #1 5 grams 08/14/24 Held on 05/11/25. Instructions: Pt Stopped/Never Started bisacodyl 5 mg tablet,delayed 5 mg PO ONCE #4 tabs release (Dulcolax (bisacodyl)) polyethylene glycol 3350 17 17 g PO ONCE #238 grams gram/dose oral powder Current Visit Medications: Current Medications Generic Name Dose Route Start Last Admin Trade Name Freq PRN Reason Stop Dose Admin Ringer's Solution 1,000 mls @ 80 mls/hr 05/13/25 06:00 05/13/25 08:03 IV 06/10/25 23:59 80 mls/hr INFUSION CLIF Administration IV Miscellaneous Supplies 1 each 05/13/25 06:00 Iv Access IV 06/10/25 23:59 DIRECTED CLIF Sodium Chloride 0 ml 05/13/25 06:00 Normal Saline Flush 10 Ml Syr IV 06/10/25 23:59 PRN PRN Sodium Chloride 0 ml 05/13/25 06:00 Normal Saline 10 Ml Vial IJ 06/10/25 23:59 DIRECTED PRN Sterile Water 0 ml 05/13/25 06:00 Water,Injection,Sterile 10 Ml Vial IJ 06/10/25 23:59 DIRECTED PRN PFSH Active Problems Active Problems: Problem Status Onset Code Positive FIT (fecal immunochemical test) Acute R19.5 Non-alcoholic fatty liver disease Chronic K76.0 Hypothyroidism Chronic 04/20/13 E03.9 Hyperlipidemia Chronic E78.5 Anxiety Chronic F41.9 Medical History Medical History Basal cell carcinoma (BCC) of brow Left hoahaoism, excised 08/28/18, Dr Roberts, positive margins History of endometrial cancer (03/2017) 04/04/17 [facility] [place]; S/P HYSTERECTOMY/BSO WITH PELVIC & PARA-AORTIC LYMPHADENECTOMY/OMENTECTOMY Pleural effusion managed at [facility] [place]; parapneumonic effusion, pt lost to f/u due to Covid in 01/2020. Posttraumatic stress disorder Would black-out in the first few years after her 's . She was his caregiver. Depression Past history of with Rx and counseling; after the caregiving for her in his passing at home. Surgical History Surgical History S/P ODILIA-BSO (2016) /P HYSTERECTOMY/BSO WITH PELVIC & PARA-AORTIC LYMPHADENECTOMY/OMENTECTOMY History of excision of lesion (10/28/18) negative margins on re-excision Status post surgical removal of malignant neoplasm of skin Tobacco Smoking/Tobacco Use Status: Never Second hand exposure: Yes Alcohol Alcohol Intake: former Substance Use Substance use: Never Substance use type: does not use Vital Signs and Lab Results Vital Signs Most Recent Vital Signs in EMR: Most Recent Vital Signs Temp Pulse Resp BP Pulse Ox 36.3 C L 64 16 129/74 98 05/13/25 07:35 05/13/25 07:35 05/13/25 07:35 05/13/25 07:35 05/13/25 07:35 Anesthesia Assessment and Plan Anesthesia History Personal History: No History of Anesthesia Complications Family History: No Family History of Anesthesia Complications Exercise Tolerance Exercise Tolerance: Metabolic Equivalents>4 Pertinent Negatives Pertinent Negatives: No Symptoms of GERD, No Major Cardiovascular Symptoms or Complaints and No Major Pulmonary Symptoms or Complaints Cardiac & Pulmonary Exam Cardiac Exam: Normal S1/S2 Heart Sounds Pulmonary Exam: Clear Bilateral Breath Sounds Implantable Cardiac Device Does patient have a Pacemaker or an ICD?: No Airway Exam Known Difficult Airway: No Mallampati Class: 2 Mouth Opening: Normal (> 3cm) Thyromental Distance: Greater than 3 cm Neck Range of Motion: Full ROM Neck Circumference: Normal Teeth Condition: Removable Dentures/Plates Lower ASA Classification ASA Score: ASA 2 Emergency Case?: No NPO Status NPO Status: NPO Clears >2 hours, Solids >8 hours Anesthesia Plan Resuscitation Status: Full Code Anesthesia Technique: General Anesthesia Airway Planned: Natural Airway Monitors Used: Standard Monitors
[2025-05-13 08:28] VITALS: BMI 27.3
[2025-05-13 09:10] VITALS: BP 121/72; PULSE 56; RESP 16; TEMP 36.4; O2SAT 97
--- NOTE | 2025-05-13 09:34 | W.COLOREPORT ---
Date of service: 05/13/25 Time of Service: 09:34 Colonoscopy Report Date of procedure: 05/13/25 Pre-op diagnosis general: Positive Cologuard screening test Post-op diagnosis procedure note: other (Diverticulosis of colon) Procedure: Colonoscopy Surgeon: Angelica Mattson Anesthesia Type: MAC Estimated blood loss (mL): 0 Pathology: none sent Complications: None Disposition: same day Prep: Dulcolax Findings: Diverticulosis of colon. No mass lesions, no polyps. Procedure Description: Consent obtained Time out performed Patient positioned in left lateral decubitus position Flexible colonoscopy inserted through the anus into the rectum and advanced to the cecum cecum identified by appendiceal orifice endoscope withdrawn and mucosa examined. Ascending, transverse, descending colon examined. Rectum examined. Endoscope retroflexed and the anal verge examined. No mass lesion, poyp, inflammatory change, or AVM seen. Sigmoid diverticulosis noted, small mouthed, moderate. No evidence of diverticulitis. Grade 2 internal hemorrhoids without complication. PLAN: Unremarkable for a cause for positive cologuard test. False positive cologuard. Pt is no longer a candidate for cologuard. Next colonoscopy due in 5 years for screening, due to history of uterine cancer.
--- NOTE | 2025-05-13 09:37 | W.ANESPOSTOP ---
Postoperative Evaluation Date, Time and Location Date Performed: 05/13/25 Time Performed: 09:15 Patient Location: Day Surgery Unit Vital Signs Most Recent Imported Vital Signs: Most Recent Vital Signs Temp Pulse Resp BP Pulse Ox 36.4 C L 56 L 16 121/72 97 05/13/25 09:10 05/13/25 09:10 05/13/25 09:10 05/13/25 09:10 05/13/25 09:10 Pain Score Most Recent Pain Score: Most Recent Pain Score Pain Level 0 05/13/25 09:10 Assessment Mental Status: Awake (Alert & Oriented to Patient Baseline) Airway and Respiratory Function: Patent airway with normal (patient baseline) respiratory exam Cardiovascular Function: Hemodynamically Stable Hydration Status: Adequately Hydrated Nausea & Vomiting: No Nausea or Vomiting Pain: Pt. Denies Any Pain Peripheral Nerve Block: Patient did not receive a nerve block
== END 2025-05-13 07:10 | disposition home or self-care (01) ==
PROVIDERS: PCP Family Medicine; Visit Provider Surgery
PROC: 0DJD8ZZ Inspection of Lower Intestinal Tract, Via Natural or Artificial Opening Endoscopic (ICD-10-PCS; CPT 45378; principal; 2025-05-13 08:30)
DX: Z12.11 Encounter for screening for malignant neoplasm of colon (principal); K57.30 Diverticulosis of large intestine without perforation or abscess without bleeding
CPT/HCPCS: G0121; J2003; J2704